=== PATIENT | female | born 1985 | race Caucasian/White ===

== ENCOUNTER 2016-10-24 09:04 | Emergency (ER) | payer MEDICAID ==
[2010-07-04 12:23] VITALS: BMI 30.3
== END 2016-10-24 09:45 | disposition home or self-care (01) ==
LOC: D.ER 09:04
DX: H65.92 Unspecified nonsuppurative otitis media, left ear (principal); K03.81 Cracked tooth; K02.9 Dental caries, unspecified

== ENCOUNTER 2016-12-14 09:32 | Emergency (ER) | payer MEDICAID ==
[2010-07-04 12:23] VITALS: BMI 30.3
[2016-12-14 10:30] LABS: HCG URINE NEGATIVE (NEGATIVE)
== END 2016-12-14 11:59 | disposition home or self-care (01) ==
LOC: D.ER 09:32
PROVIDERS: Nurse Practitioner Family
DX: S09.90XA Unspecified injury of head, initial encounter (principal); Y04.2XXA Assault by strike against or bumped into by another person, initial encounter; Y93.89 Activity, other specified; Y92.89 Other specified places as the place of occurrence of the external cause; R53.1 Weakness; R41.82 Altered mental status, unspecified

== ENCOUNTER 2018-04-23 08:09 | Emergency (ER) | payer MEDICAID ==
[~2018-04-23] VITALS: Ht 152.4 cm; Wt 84.1 kg
[2018-04-23 08:19] VITALS: Ht 152.4 cm; Wt 84.1 kg
[2018-04-23 09:15] VITALS: BP 142/87
[2018-04-23 09:29] LABS: COLOR YELLOW (YELLOW)
[2018-04-23 09:30] LABS: APPEARANCE HAZY (CLEAR); BACTERIA MODERATE /hpf (NONE SEEN); BILIRUBIN NEGATIVE (NEGATIVE); GLUCOSE NEGATIVE (NEGATIVE); KETONE NEGATIVE (NEGATIVE); MUCUS >1+ /lpf (NONE SEEN); NITRITE NEGATIVE (NEGATIVE); PROTEIN NEGATIVE (NEGATIVE); UROBILINOGEN NORMAL (NORMAL); WHITE CELLS - URINE 0-5 /hpf (0-5)
== END 2018-04-23 09:16 | disposition home or self-care (01) ==
LOC: D.ER 08:09
PROVIDERS: Family Medicine
DX: Z20.2 Contact with and (suspected) exposure to infections with a predominantly sexual mode of transmission (principal)

== ENCOUNTER 2019-10-26 21:51 | Emergency (ER) | payer SELFPAY ==
[~2019-10-26] VITALS: Ht 152.4 cm; Wt 81.2 kg
[2019-10-26 21:58] VITALS: Ht 152.4 cm; Wt 81.2 kg
[2019-10-26] MEDS ORDERED: HYDROCODON-ACE1 EAC7 PO (22:53)
[2019-10-26] MEDS ORDERED: ZOFRAN ODT4 MG/UDTAB PO (22:53)
[2019-10-26 23:11] VITALS: BP 165/102
== END 2019-10-26 23:11 | disposition home or self-care (01) ==
LOC: D.ER 21:51
DX: T22.10XA Burn of first degree of shoulder and upper limb, except wrist and hand, unspecified site, initial encounter (principal); X12.XXXA Contact with other hot fluids, initial encounter; Y93.9 Activity, unspecified; Y92.9 Unspecified place or not applicable